=== PATIENT | female | born 1990 | race Caucasian/White ===

== ENCOUNTER 2017-09-24 15:39 | Emergency (ER) | payer BC ==
[~2017-09-24] VITALS: Ht 157.5 cm; Wt 54.4 kg
--- NOTE | 2017-09-24 16:05 | NUR ---
Patient to room 3 to await MD evaluation.
[2017-09-24 16:06] VITALS: BP_SYST 150
[2017-09-24 16:10] LABS: BASOPHILS # (AUTO) 0.1 K/uL (0.0-0.2); BASOPHILS % (AUTO) 0.9 % (0.0-2.0); EOSINOPHILS # (AUTO) 0.1 K/uL (0.0-0.4); EOSINOPHILS % (AUTO) 1.5 % (0.0-4.0); HEMATOCRIT 38.1 % (36-48); LYMPHOCYTES # (AUTO) 2.1 K/uL (1.0-5.5); LYMPHOCYTES % (AUTO) 31.5 % (20.5-51.5); MEAN CORPUSCULAR HEMOGLOBIN 30 pg (27-31); MEAN CORPUSCULAR HGB CONC 34 % (32-36); MEAN CORPUSCULAR VOLUME 88 fL (79.0-98.0); MONOCYTES # (AUTO) 0.4 K/uL (0.0-1.0); MONOCYTES % (AUTO) 6.6 % (1.7-9.3); NEUTROPHILS % (AUTO) 59.5 % (40.0-70.0); PLATELET COUNT (AUTO) 340 K/uL (130-430); RED BLOOD CELL COUNT(AUTO) 4.36 MIL/uL (4.2-6.2); RED CELL DISTRIBUTION WIDTH 11.6 % (9.0-15.0); WHITE BLOOD COUNT (AUTO) 6.7 K/uL (4.8-10.8)
--- NOTE | 2017-09-24 16:10 | NUR ---
Patient to ER via triage with c/o lower abdominal pain, bloating and constipation. Patient also reports "white" feces. Patient reports pain is rated as 8/10. Patient is awake, alert and oriented in no acute distress. Patient able to ambulate with slow, steady gait to room. Patient awaiting evaluation by ER MD, will continue to observe and assess.
--- NOTE | 2017-09-24 16:15 | NUR ---
Dr Kumar at bedside to evaluate patient.
[2017-09-24 16:22] LABS: CALCIUM 10.2 mg/dL (8.4-11.0); CREATININE 0.84 mg/dL (0.55-1.30); POTASSIUM 3.4 mmol/L (3.5-5.1)
[2017-09-24 16:23] LABS: BILIRUBIN,URINE NEGATIVE (NEGATIVE); BLOOD, URINE NEGATIVE (NEGATIVE); CLARITY/URINE CLEAR (CLEAR); GLUCOSE,URINE NEGATIVE (NEGATIVE); KETONES,URINE NEGATIVE (NEGATIVE); LEUKOCYTE ESTERASE ,URINE NEGATIVE (NEGATIVE); NITRITE, URINE NEGATIVE (NEGATIVE); PROTEIN URINE NEGATIVE (NEGATIVE); UROBILINOGEN,URINE 0.2 (0.2-1.0)
[2017-09-24 16:23] LABS: PROTHROMBIN TIME 10.4 SECS (9.5-12.5)
[2017-09-24 16:28] LABS: COLOR,URINE STRAW (YELLOW)
[2017-09-24 16:29] LABS: ALBUMIN 4.7 g/dL (3.4-4.8); TOTAL BILIRUBIN 0.7 mg/dL (0.0-1.0)
--- NOTE | 2017-09-24 17:10 | NUR ---
Patient to CT scan in stable condition via wheelchair.
--- NOTE | 2017-09-24 17:20 | NUR ---
Patient returned from CT scan in stable condition.
[2017-09-24 18:30] VITALS: BP_SYST 117
--- NOTE | 2017-09-24 18:30 | NUR ---
Patient given written and verbal discharge instructions and verbalizes understanding. ER MD discussed with patient the results and treatment provided. Patient in stable condition. ID arm band removed. Rx of Miralax, Motrin given. Patient educated on pain management and to follow up with PMD. Pain Scale 2. Opportunity for questions provided and answered. Patient left ER ambulating with slow, steady gait in no acute distress with family at side.
== END 2017-09-24 18:30 | disposition home or self-care (01) ==
LOC: SED 15:39
DX: K59.00 Constipation, unspecified (principal)
CPT/HCPCS: 36415; 80053; 81003; 81025; 83690-TC; 84703; 85025; 85610-TC; 85730-TC; 99285